=== PATIENT | male | born 1970 | race Caucasian/White ===

== ENCOUNTER 2022-12-04 08:11 | Emergency (ER) | payer OTHER, SELFPAY ==
[2022-12-04 08:34] VITALS: BP 153/72; PULSE 60; RESP 18; TEMP 36.4; O2SAT 98; BMI 36.0
--- NOTE | 2022-12-04 08:59 | ED_ITS ---
HPI - Nausea/Vomiting/Diarrhea General Chief complaint: Nausea/Vomiting/Diarrhea Stated complaint: vomiting Time Seen by Provider: 12/04/22 08:23 Source: patient and family Mode of arrival: ambulatory Limitations: no limitations History of Present Illness HPI Narrative: 52 yo male with history of DM on insulin who presents to the ER for evaluation N/V/D that started in the middle of the night last night. He states he has vomited about 20 times and has had multiple episodes of diarrhea. Last night he had left flank pain which has since resolved. No urinary symptoms. He just took his 1st dose of Trulicity last night around 6:30pm and feels like his symptoms are directly related. He denies any fevers but he has had chills. No one else at home with similar symptoms. MD elicited complaint: nausea, vomiting and diarrhea Onset (ago): hour(s) Description of vomiting: food contents and bilious Description of diarrhea: loose Associated nausea: Yes Associated abdominal pain: Yes Location of pain: L flank Pain consistency: now resolved Severity: moderate Quality: stabbing Exacerbating factors: eating Relieving factors: none Context: new medication Associated symptoms: loss of appetite, malaise, nausea/vomiting and weakness Related Data Previous Rx's Medication Instructions Recorded ondansetron 4 mg disintegrating 4 mg PO Q8H PRN nausea and 12/04/22 tablet vomiting #14 tabs Allergies Allergy/AdvReac Type Severity Reaction Status Date / Time No Known Allergies Allergy Verified 12/04/22 08:38 Review of Systems Review of Systems: Yes all other systems are reviewed and are negative Gastrointestinal: Gastrointestinal: Reports nausea PMFSH Social History Social History (System 01/30/22 @ 14:52 by Mikayla Gordon) Alcohol intake: never Smoked in Last 30 Days: Yes Use of substances other than those prescribed or required for medical reasons: No Substance Use Type: Marijuana Substance Use Frequency: Daily Advance Directives: No Advance Directives Information Provided: Yes Physical Exam Vital Signs: Vital Signs: Last Vital Signs Temp 97.6 F 12/04/22 08:34 Pulse 62 12/04/22 10:06 Resp 20 12/04/22 10:06 BP 140/72 H 12/04/22 10:06 Pulse Ox 96 12/04/22 10:57 O2 Del Method 12/04/22 10:57 O2 Flow Rate 2 12/04/22 10:57 BMI result Body Mass Index 36.0 Appearance: Alert. Oriented X3. Eyes closed, c/o nausea Eyes: Pupils equal, round and reactive to light. ENT: Pharynx normal. Neck: Normal inspection. Neck supple. CVS: Normal heart rate and rhythm. Pulses normal. Respiratory: No respiratory distress. Breath sounds normal. Abdomen: Soft and nontender. +BS x4 Skin: Skin warm and dry. Normal skin color. Normal skin turgor. No rashes. Extremities: No lower extremity edema. Neuro: Oriented X 3. Grossly normal, nonfocal Course Reevaluation(s) Reevaluation #1: Labs unremarkable. Patient continues to be nauseous and vomiting. Will order Reglan and 2 L of fluids. Diarrhea here Reevaluation #2: Patient sleeping comfortably in stretcher Time: 11:38 Reevaluation #3: Patient tolerating p.o.. No further episodes of vomiting. At this time is stable for discharge home with p.o. antiemetics as needed. Follow-up with his doctor. Stable for DC. Time: 13:21 Medications Administered Discontinued Medications Generic Name Dose Route Start Last Admin Trade Name Freq PRN Reason Stop Dose Admin Sodium Chloride 1,000 mls @ 999 mls/hr 12/04/22 08:30 12/04/22 10:26 Ns IVCONT 12/04/22 09:30 Infused .Q1H1M KAYLA Infusion Sodium Chloride 1,000 mls @ 999 mls/hr 12/04/22 10:00 12/04/22 11:50 Ns IVCONT 12/04/22 11:00 Infused .Q1H1M KAYLA Infusion Metoclopramide HCl 10 mg 12/04/22 10:42 12/04/22 10:56 Metoclopramide Hcl 10 Mg/2 Ml Vial IVPUSH 12/04/22 10:43 10 mg ONCE ONE Administration Ondansetron HCl 4 mg 12/04/22 08:23 12/04/22 09:01 Ondansetron Hcl 4 Mg/2 Ml Vial IVPUSH 12/04/22 08:24 4 mg ONCE ONE Administration Medical Decision Making Medical Decision Making MDM Narrative: 52-year-old male with history of diabetes on insulin presents to the ER for evaluation of nausea, vomiting, diarrhea all night after starting Trulicity yesterday evening. He is unable to tolerate any p.o.. He arrived to the ER actively vomiting some bilious material. He was reporting some back pain last night which is improved, some mild diffuse abdominal pain. No point tenderness on examination. Adverse effects of Trulicity have been reviewed, common reactions nausea, vomiting, diarrhea. Serious reaction includes pancreatitis or ileus. He has normoactive bowel sounds an is having diarrhea. Doubt ileus. Hold off on imaging of the abdomen for now. Lipase is normal Differential Diagnosis Differential Diagnoses: The differential diagnosis associated with the presentation includes Acute gastroenteritis, adverse medication reaction, cyclical vomiting due to cannabis, dehydration, metabolic derangement, anemia Lab Data MDM Lab Attestation statement: I reviewed the patient's lab results. Stable anemia, mild hyperglycemia without any evidence of DKA. No dehydration or metabolic derangement 12/04/22 08:57 12/04/22 08:57 Labs: Lab Results 12/04/22 12/04/22 12/04/22 Range/Units 08:57 08:57 08:57 WBC 9.6 (4.8-10.8) X10*3/uL RBC 4.15 L (4.60-5.80) X10*6/uL Hgb 12.8 L (14.0-18.0) g/dl Hct 37.5 L (42.0-52.0) % MCV 90.4 (80.0-98.0) fL MCH 30.8 (27.0-33.0) pg MCHC 34.1 (31.0-36.0) g/dl RDW 13.2 (11.0-16.0) % Plt Count 188 (160-400) X10*3/uL MPV 11.2 (9.4-12.4) fL Immature Gran % (Auto) 0.5 H (0.0-0.4) % Neut % (Auto) 73.0 (45-73) % Lymph % (Auto) 17.8 L (20-40) % Shannon % (Auto) 6.3 (2-11) % Eos % (Auto) 2.1 (0-4) % Baso % (Auto) 0.3 (0-2) % Lymph # (Auto) 1.7 (1.2-4.9) X10*3/uL Shannon # (Auto) 0.6 (0.1-1.2) X10*3/uL Eos # (Auto) 0.2 (0.0-0.4) X10*3/uL Baso # (Auto) 0.0 (0.0-0.2) X10*3/uL Abs Immat Gran (auto) 0.05 H (0.00-0.03) X10*3/uL Absolute Neuts (auto) 7.0 (2.0-8.3) x10*3/uL Absolute Nucleated RBC 0.000 (0.0-0.012) X10*3/uL Nucleated RBC % (auto) 0.0 (0.0-0.2) /100WBC Sodium 138 (135-145) mmol/L Potassium 4.9 (3.3-5.1) mmol/L Chloride 102 (96-108) mmol/L Carbon Dioxide 26 (22-29) mmol/L Anion Gap 15 (12-20) BUN 11 (9-16) mg/dL Creatinine 1.27 (0.5-1.4) mg/dL Estim Creat Clear Calc 71.6 Estimated GFR 60 POC Glucose (60-115) mg/dL Random Glucose 244 H (60-115) mg/dL Calcium 8.7 (8.4-10.2) mg/dL Magnesium 1.6 (1.6-2.6) mg/dL Total Bilirubin 0.7 (0.0-1.0) mg/dL Direct Bilirubin 0.2 (0.0-0.5) mg/dL AST 18 (5-37) U/L ALT 19 (0-40) U/L Alkaline Phosphatase 97 (39-117) U/L Total Protein 7.1 (6.5-8.0) g/dL Albumin 3.8 (3.5-5.0) g/dL Lipase 20 (8-78) U/L Urine Color Urine Appearance Urine pH (5.0-9.0) Ur Specific [place] (1.005-1.025) Urine Protein (Neg-Trace) mg/dL Urine Glucose (UA) (Negative) mg/dL Urine Ketones (Negative) mg/dL Urine Blood (Negative) Urine Nitrite (Negative) Ur Leukocyte Esterase (Negative) Urine RBC (0-2) /HPF Urine WBC (0-5) /HPF Ur Squamous Epith Cells (0-2) /HPF Urine Bacteria (None Seen) Hyaline Casts (0-2) /LPF Urine Opiates Screen (Not Detect) Urine Fentanyl Screen (Not Detect) Ur Barbiturates Screen (Not Detect) Ur Phencyclidine Scrn (Not Detect) Ur Amphetamines Screen (Not Detect) U Benzodiazepines Scrn (Not Detect) Urine Cocaine Screen (Not Detect) U Marijuana (THC) Screen (Not Detect) Ethyl Alcohol < 10 mg/dL 12/04/22 12/04/22 12/04/22 Range/Units 10:41 11:29 11:29 WBC (4.8-10.8) X10*3/uL RBC (4.60-5.80) X10*6/uL Hgb (14.0-18.0) g/dl Hct (42.0-52.0) % MCV (80.0-98.0) fL MCH (27.0-33.0) pg MCHC (31.0-36.0) g/dl RDW (11.0-16.0) % Plt Count (160-400) X10*3/uL MPV (9.4-12.4) fL Immature Gran % (Auto) (0.0-0.4) % Neut % (Auto) (45-73) % Lymph % (Auto) (20-40) % Shannon % (Auto) (2-11) % Eos % (Auto) (0-4) % Baso % (Auto) (0-2) % Lymph # (Auto) (1.2-4.9) X10*3/uL Shannon # (Auto) (0.1-1.2) X10*3/uL Eos # (Auto) (0.0-0.4) X10*3/uL Baso # (Auto) (0.0-0.2) X10*3/uL Abs Immat Gran (auto) (0.00-0.03) X10*3/uL Absolute Neuts (auto) (2.0-8.3) x10*3/uL Absolute Nucleated RBC (0.0-0.012) X10*3/uL Nucleated RBC % (auto) (0.0-0.2) /100WBC Sodium (135-145) mmol/L Potassium (3.3-5.1) mmol/L Chloride (96-108) mmol/L Carbon Dioxide (22-29) mmol/L Anion Gap (12-20) BUN (9-16) mg/dL Creatinine (0.5-1.4) mg/dL Estim Creat Clear Calc Estimated GFR POC Glucose 239 H (60-115) mg/dL Random Glucose (60-115) mg/dL Calcium (8.4-10.2) mg/dL Magnesium (1.6-2.6) mg/dL Total Bilirubin (0.0-1.0) mg/dL Direct Bilirubin (0.0-0.5) mg/dL AST (5-37) U/L ALT (0-40) U/L Alkaline Phosphatase (39-117) U/L Total Protein (6.5-8.0) g/dL Albumin (3.5-5.0) g/dL Lipase (8-78) U/L Urine Color Yellow Urine Appearance Clear Urine pH >= 9.0 (5.0-9.0) Ur Specific [place] 1.015 (1.005-1.025) Urine Protein 100 (2+) H (Neg-Trace) mg/dL Urine Glucose (UA) 500 H (Negative) mg/dL Urine Ketones Trace (Negative) mg/dL Urine Blood Negative (Negative) Urine Nitrite Negative (Negative) Ur Leukocyte Esterase Negative (Negative) Urine RBC 0-2 (0-2) /HPF Urine WBC 0-5 (0-5) /HPF Ur Squamous Epith Cells 0-2 (0-2) /HPF Urine Bacteria None Seen (None Seen) Hyaline Casts 0-2 (0-2) /LPF Urine Opiates Screen Not Detected (Not Detect) Urine Fentanyl Screen Not Detected (Not Detect) Ur Barbiturates Screen Not Detected (Not Detect) Ur Phencyclidine Scrn Not Detected (Not Detect) Ur Amphetamines Screen Not Detected (Not Detect) U Benzodiazepines Scrn Not Detected (Not Detect) Urine Cocaine Screen POSITIVE H (Not Detect) U Marijuana (THC) Screen POSITIVE H (Not Detect) Ethyl Alcohol mg/dL Independent Historian Clinical information obtained from an independent historian. History obtained from or confirmed by: Spouse External Record Review External record reviewed: Prior outpatient labs Prescription Management I considered prescription management with: Other (Antiemetics) Chronic Conditions Patient?s care impacted by: Diabetes Critical Care Time Critical Care Time Critical Care Time: No Discharge Plan Discharge Clinical Impression: Nausea & vomiting Patient Disposition: Home, Self-Care Instructions: Acute Nausea and Vomiting (ED) Additional Instructions: Your lab workup today was unremarkable. Take the prescribed medication as directed for nausea. Follow-up with your doctor. If you develop new or worsening symptoms call 911 or come back to the ER for further evaluation. Prescriptions: New ondansetron 4 mg tablet,disintegrating 4 mg PO Q8H PRN (Reason: nausea and vomiting) Qty: 14 0RF Referrals: Eric Bailon MD [Primary Care Provider] - Interventions: ED Discharge Assessment Last Done: 12/04/22 13:21
[2022-12-04] MEDS: ondansetron HCL 4 MG/2 ML VIAL IVPUSH (09:01)
[2022-12-04] MEDS: 0.9 % Sodium Chloride 1,000 ML 999 ML IVCONT ×2 (09:01→10:37)
[2022-12-04 09:04] LABS: MANUAL DIFF FLAG NO
[2022-12-04 09:09] LABS: Basophils Percent Auto 0.3 % (0-2); Eosinophils Absolute Auto 0.2 X10*3/uL (0.0-0.4); Eosinophils Percent Auto 2.1 % (0-4); Hematocrit 37.5 % (42.0-52.0); Hemoglobin 12.8 g/dl (14.0-18.0); Imm Gran Abs Auto 0.05 X10*3/uL (0.00-0.03); Imm Gran Pct Auto 0.5 % (0.0-0.4); Lymphocytes Absolute Auto 1.7 X10*3/uL (1.2-4.9); Lymphocytes Percent Auto 17.8 % (20-40); Mean Corpuscular HGB Conc 34.1 g/dl (31.0-36.0); Mean Corpuscular Hemoglobin 30.8 pg (27.0-33.0); Mean Corpuscular Volume 90.4 fL (80.0-98.0); Mean Platelet Volume 11.2 fL (9.4-12.4); Monocytes Absolute Auto 0.6 X10*3/uL (0.1-1.2); Monocytes Percent Auto 6.3 % (2-11); Platelet Count 188 X10*3/uL (160-400); Red Blood Count 4.15 X10*6/uL (4.60-5.80); Red Cell Distribution Width 13.2 % (11.0-16.0); White Blood Count 9.6 X10*3/uL (4.8-10.8)
[2022-12-04 09:25] LABS: Alanine Aminotransferase 19 U/L (0-40); Albumin Level 3.8 g/dL (3.5-5.0); Alkaline Phosphatase 97 U/L (39-117); Anion Gap 15 (12-20); Aspartate Amino Transferase 18 U/L (5-37); Bilirubin Direct 0.2 mg/dL (0.0-0.5); Bilirubin Total 0.7 mg/dL (0.0-1.0); Blood Urea Nitrogen 11 mg/dL (9-16); Calcium 8.7 mg/dL (8.4-10.2); Carbon Dioxide 26 mmol/L (22-29); Chloride 102 mmol/L (96-108); Creatinine Clr Calc Pharmacy 71.6; Estimated Glomerular Filt Rate 60; Glucose Random 244 mg/dL (60-115); Lipase 20 U/L (8-78); Magnesium 1.6 mg/dL (1.6-2.6); Potassium 4.9 mmol/L (3.3-5.1); Sodium 138 mmol/L (135-145); Total Protein 7.1 g/dL (6.5-8.0)
[2022-12-04 09:26] LABS: Ethanol < 10 mg/dL
[2022-12-04 10:06] VITALS: BP 140/72; PULSE 62; RESP 20; O2SAT 90
[2022-12-04 10:44] LABS: Glucose, Whole Blood 239 mg/dL (60-115)
[2022-12-04] MEDS: Metoclopramide HCl 10 MG/2 ML VIAL IVPUSH (10:56)
[2022-12-04 10:57] VITALS: O2SAT 96
--- NOTE | 2022-12-04 11:29 | PC.NURSE ---
PT INSULIN DEPENDENT DIABETIC, REPORTED THAT HE STARTED TRULICITY YESTERDAY AND HAS BEEN HAVE N/V/D SINCE. HE STATED THAT HE HAS NOT BEEN ABLE TO KEEP ANYTHING DOWN AND FEELS WEAK WHEN HE STANDS UP. HE CONTRIBUTES THIS TO THE TRULICITY. PT'S SIGNIFICANT OTHER IS AT HIS BEDSIDE AND CONFIRMS HIS COMPLAINTS.
--- NOTE | 2022-12-04 11:36 | PC.NURSE ---
CARE HANDED OVER TO LEIDY AGUILAR.
[2022-12-04 11:37] LABS: Appearance Urine Clear; Color Urine Yellow; Glucose Urine UA 500 mg/dL (Negative); Leukocyte Esterase Urine Negative (Negative); Nitrite Urine Negative (Negative); PH >= 9.0 (5.0-9.0); Specific Gravity - Urine 1.015 (1.005-1.025); UMIC TRIGGER UACC YES; Urine Blood Negative (Negative); Urine Ketones Trace mg/dL (Negative); Urine Protein 100 (2+) mg/dL (Neg-Trace)
[2022-12-04 11:41] LABS: Bacteria Urine None Seen (None Seen); Hyaline Casts Urine 0-2 /LPF (0-2); RBC Urine 0-2 /HPF (0-2); Squamous Epithelial Cell Urine 0-2 /HPF (0-2); WBC Urine 0-5 /HPF (0-5)
[2022-12-04 11:51] LABS: Amphetamine Screen Urine Not Detected (Not Detect); Barbiturates, Urine Not Detected (Not Detect); Benzodiazepines Screen Urine Not Detected (Not Detect); Cannabinoid Screen Urine POSITIVE (Not Detect); Cocaine Screen Urine POSITIVE (Not Detect); Fentanyl, urine Not Detected (Not Detect); Opiate Screen Urine Not Detected (Not Detect); Phencyclidine Screen Urine Not Detected (Not Detect)
--- NOTE | 2022-12-04 11:51 | PC.NURSE ---
Patient resting comfortably no distress noted tolerated IVF with no ill effect
--- NOTE | 2022-12-04 12:05 | PC.NURSE ---
Patient sleeping no distress noted will CTM
--- NOTE | 2022-12-04 12:34 | PC.NURSE ---
Patient sleeping easily aroused reports nausea upon waking no vomiting noted will CTM
--- NOTE | 2022-12-04 13:16 | PC.NURSE ---
Patient tolerated po fluids an small bite of crackers
== END 2022-12-04 13:21 | disposition home or self-care (01) ==
PROVIDERS: Physician Assistant; Emergency Provider Emergency Medicine; PCP Internal Medicine
DX: R11.2 Nausea with vomiting, unspecified (principal); R19.7 Diarrhea, unspecified; Z79.899 Other long term (current) drug therapy
CPT/HCPCS: 36415; 80048; 80076; 80307; 81001; 82077; 82947; 83690; 83735; 85025; 96361; 96374; 96375; 99284; J2405; J2765